=== PATIENT | female | born 1995 | race Caucasian/White ===

== ENCOUNTER 2019-08-11 15:43 | Inpatient (IN) ==
[~2019-08-11 15:43] MED LIST: *HR* Nalbuphine 10 MG/ML AMPUL IVP PRN; Azithromycin 500 MG in 0.9 % Sodium Chloride 250 ML IVPB ONE; Famotidine 20 MG/2 ML VIAL IVP PRN; Metoclopramide 10 MG/2 ML VIAL IVP PRN; Naloxone 0.4 MG/ML INJ IVP PRN; Ondansetron 4 MG/2 ML VIAL IVP PRN
[2019-08-11] MEDS ORDERED: Ringers Solution, Lactated 1,000 ML IVC SCH (15:45)
[2019-08-11] MEDS ORDERED: Oxytocin 20 units/ LR 1000 mL 20 UNIT/1,000 ML BAG IVC SCH (15:45)
[2019-08-11] MEDS ORDERED: Penicillin G Potassium 5,000,000 UNIT in 0.9 % Sodium Chloride Mini Bag 100 ML IVPB ONE ×2 (15:48→17:15)
[2019-08-11 16:55] LABS: Basophils # 0.1 K/mcL (0.0-0.2); Basophils % 0.4 %; Eosinophils % 0.3 %; Hematocrit 35.9 % (35.3-44.9); Hemoglobin 12.4 g/dL (11.5-15.4); Immature Granulocytes % 1.6 % (0-4); Lymphocytes # 1.4 K/mcL (0.6-4.6); Lymphocytes % 10.2 %; Mean Corpuscular HGB Conc 34.5 g/dL (31.6-35.5); Mean Corpuscular Hemoglobin 30.6 pg (28.0-33.3); Mean Corpuscular Volume 88.6 fL (83.0-100.0); Mean Platelet Volume 11.2 fL (9.4-12.4); Monocytes # 0.8 K/mcL (0.0-1.3); Monocytes % 5.5 %; Neutrophils # 11.3 K/mcL (1.6-8.9); Platelet Count 228 K/mcL (140-400); Red Blood Count 4.05 M/mcL (3.82-4.97); White Blood Count 13.8 K/mcL (4.3-11.1)
[2019-08-11 17:02] LABS: Amphetamine Screen,Urine Negative ng/mL (Cutoff=1000); Barbiturate Screen,Urine Negative ng/mL (Cutoff=200); Benzodiazepines Screen,Urine Negative ng/mL (Cutoff=200); Cannabinoid Screen,Urine Negative ng/mL (Cutoff = 50); Cocaine Screen,Urine Negative ng/mL (Cutoff= 300); Opiate Screen,Urine Negative ng/mL (Cutoff=300); Phencyclidine Screen,Urine Negative ng/mL (Cutoff=25)
[2019-08-11] MEDS ORDERED: Epidural Premix (fent/bupiv) 110 ML EP SCH (18:30)
[2019-08-11] MEDS ORDERED: EPHEDrine 50 MG/ML VIAL IVP PRN (18:30)
[2019-08-11] MEDS: Penicillin G Potassium 2,500,000 UNIT in 0.9 % Sodium Chloride 100 ML IVPB SCH (21:07)
[2019-08-11] MEDS ORDERED: Ropivacaine/PF 0.2% 20 ML VIAL ONE (23:28)
[2019-08-11] MEDS ORDERED: *HR* FentaNYL (PF) 100 MCG/2 ML VIAL ONE (23:28)
[2019-08-12] MEDS: Penicillin G Potassium 2,500,000 UNIT in 0.9 % Sodium Chloride 100 ML IVPB SCH (01:15)
[2019-08-12] MEDS ORDERED: Benzocaine/Menthol 56 GM AEROSOL SPRAY TP PRN (06:13)
[2019-08-12] MEDS ORDERED: *HR* HYDROcodone/Acet 5/325 mg TABLET PO PRN (06:13)
[2019-08-12] MEDS ORDERED: Acetaminophen 325 MG TABLET PO PRN (06:13)
[2019-08-12] MEDS ORDERED: Oxytocin 20 units/ LR 1000 mL 20 UNIT/1,000 ML BAG IVC SCH (06:13)
[2019-08-12] MEDS: BuPROPion XL (24 HR) 150 MG TABLET PO SCH (09:33)
[2019-08-12] MEDS: Ibuprofen 600 MG TABLET PO PRN ×2 (09:33→15:13)
[2019-08-12] MEDS: Prenatal Vit/FA 1 EACH TABLET PO SCH (09:33)
[2019-08-12] MEDS ORDERED: ARIPiprazole 2 MG TABLET PO SCH (21:00)
[2019-08-13] MEDS: Ibuprofen 600 MG TABLET PO PRN ×2 (01:21→07:38)
[2019-08-13] MEDS: Prenatal Vit/FA 1 EACH TABLET PO SCH (07:38)
[2019-08-13] MEDS: BuPROPion XL (24 HR) 150 MG TABLET PO SCH (07:38)
[2019-08-13 08:18] VITALS: BP 128/77
== END 2019-08-13 12:56 | disposition home or self-care (01) | DRG 560 ==
LOC: 1NENULAB → MERGE 15:43 → 1NENUOBS 08-12 06:20
PROVIDERS: ADMIT Obstetrics & Gynecology; ATTEND Obstetrics & Gynecology